=== PATIENT | female | born 1980 | race Caucasian/White ===

== ENCOUNTER 2023-12-05 10:49 | Emergency (ER) | payer OTHER ==
--- NOTE | 2023-12-05 11:34 | RAD REPORT ---
EXAMINATION: Abdomen Exam Limited CLINICAL HISTORY: [facility] MAIN abd pain er 19 COMPARISON: None. TECHNIQUE: Limited abdominal grayscale and color flow sonographic images. FINDINGS: Survey of the 4 abdominal quadrants reveals a mild volume of free ascites. The amount of free fluid i s not deemed safe for ultrasound-guided drainage. Mildly prominent small bowel loops throughout the abdomen containing fluid. IMPRESSION: Mild ascites. Volume is not sufficient for safe ultrasound-guided paracentesis.
--- NOTE | 2023-12-05 11:55 | ER ---
Nurse's Notes [facility] Name: Naomi Celis Age: 43 yrs Sex: Female : 1980 Arrival Date: 12/05/2023 Time: 10:49 Bed 19 Private MD: Diagnosis: Alcoholic cirrhosis of liver Presentation: 12/04 11:13 Coronavirus screen: At this time, the client does not indicate any symptoms associated iw with coronavirus-19. Ebola Screen: No symptoms or risks identified at this time. Initial Sepsis Screen: Does the patient meet any 2 criteria? No. Patient's initial sepsis screen is negative. Does the patient have a suspected source of infection? No. Patient's initial sepsis screen is negative. Risk Assessment: Do you want to hurt yourself or someone else? Patient reports no desire to harm self or others. 11:13 Acuity: ANAIS 3 iw 11:13 Method Of Arrival: Ambulatory iw 11:14 Chief complaint: Patient states: abd pain . distention, hx of cirrhosis, was released iw from hospital after paracentesis this past week. Onset of symptoms was December 05, 2023. 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 - Infectious Disease History:: Denies. - Social history:: Smoking status: Patient reports the use of cigarette tobacco products, smokes one-half pack cigarettes per day. Screenin:24 [facility] ED Fall Risk Assessment (Adult) History of falling in the last 3 months, mb9 including since admission No falls in past 3 months (0 pts) Confusion or Disorientation No (0 pts) Intoxicated or Sedated No (0 pts) Impaired Gait No (0 pts) Mobility Assist Device Used No (0 pt) Altered Elimination No (0 pt) Score/Fall Risk Level 0 - 2 = Low Risk Oriented to surroundings, Maintained a safe environment, Educated pt \T\ family on fall prevention, incl call for assistance when getting out of bed. Abuse screen: Denies threats or abuse. Nutritional screening: No deficits noted. Tuberculosis screening: No symptoms or risk factors identified. Assessment: 11:23 General: Appears in no apparent distress. Behavior is calm, cooperative. Pain: mb9 Complains of pain in abdomen Pain does not radiate. Quality of pain is described as pressure, throbbing, Is continuous. Neuro: [place]ano Agitation-Sedation Scale (RASS): 0 - Alert and Calm Level of Consciousness is awake, alert, obeys commands, Oriented to person, place, time, situation, Appropriate for age. Cardiovascular: Patient's skin is warm and dry. Respiratory: Airway is patent Respiratory effort is even, unlabored, Respiratory pattern is regular, symmetrical. GI: Abdomen is round distended, Bowel sounds present X 4 quads. Abd is soft Abdomen is tender to palpation X 4 quads. : No signs and/or symptoms were reported regarding the genitourinary system. EENT: No signs and/or symptoms were reported regarding the EENT system. Derm: Skin is pink, warm \T\ dry. Musculoskeletal: Range of motion: intact in all extremities. 12:21 Reassessment: No changes from previously documented assessment. Patient and/or family mb9 updated on plan of care and expected duration. Pain level reassessed. Patient is alert, oriented x 3, equal unlabored respirations, skin warm/dry/pink. Vital Signs: 11:14 BP 113 / 75; Pulse 102; Resp 18; Temp 97.7; Pulse Ox 100% on R/A; Weight 58.51 kg; iw Height 5 ft. 11 in. ; Pain 8/10; 12:21 BP 110 / 72; Pulse 90; Resp 16; Pulse Ox 100% on R/A; mb9 11:14 Body Mass Index 17.99 (58.51 kg, 180.34 cm) iw 11:14 Pain Scale: Adult iw ED Course: 10:51 Patient arrived in ED. ra3 10:53 Wing Clarke DO is Attending Physician. ms3 11:13 Triage completed. iw 11:23 Michelle Gurrola, MICHAEL is Primary Nurse. mb9 11:23 Arm band placed on. mb9 11:24 Bed in low position. Call light in reach. Side rails up X 1. Provided Education on: mb9 press call light if needing anything. Client placed on continuous cardiac and pulse oximetry monitoring. NIBP monitoring applied. 11:24 No provider procedures requiring assistance completed. mb9 11:25 Patient taken to ultrasound. via stretcher. mb9 11:31 Abdomen Exam Limited In Process Unspecified. EDMS 11:54 Edward Lloyd DO is Referral Physician. ms3 12:21 Patient did not have IV access during this emergency room visit. evi9 Administered Medications: No medications were administered Medication: 11:24 VIS not applicable for this client. mb9 Outcome: 11:55 Discharge ordered by MD. ms3 12:21 Discharged to home ambulatory, mb9 12:21 Condition: stable 12:21 Discharge instructions given to patient, Instructed on discharge instructions, follow up and referral plans. Demonstrated understanding of instructions, follow-up care, medications, Prescriptions given X 1, 12:21 Patient left the ED. mb9 Signatures: Dispatcher [employer] EDMS Binta Martin RN RN iw Sims, Marcus, DO DO ms3 Michelle Gurrola, RN RN mb9 Mouna Feliz 3
--- NOTE | 2023-12-05 11:55 | EDPHYS ---
Physician Documentation [facility] Name: Naomi Celis Age: 43 yrs Sex: Female : 1980 Arrival Date: 12/05/2023 Time: 10:49 Bed 19 Private MD: ED Physician Wing Clarke HPI: 12/04 11:55 This 43 yrs old Female presents to ER via Ambulatory with complaints of Abdominal Pain. ms3 11:55 43-year-old female past medical history of alcohol abuse presents to the emergency ms3 department for abdominal distention. Patient states she feels like she needs fluid drained. Patient denies fevers, chills, nausea, vomiting. 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 - Infectious Disease History:: Denies. - Social history:: Smoking status: Patient reports the use of cigarette tobacco products, smokes one-half pack cigarettes per day. ROS: 11:55 Constitutional: Negative for fever, and chills. Neck: Negative for injury, pain, and ms3 swelling, Cardiovascular: Negative for chest pain, and palpitations. Respiratory: Negative for shortness of breath, cough, wheezing, and pleuritic chest pain, 11:55 Abdomen/GI: Positive for Distention, Exam: 11:55 Constitutional: This is a well developed, well nourished patient who is awake, alert, ms3 and in no acute distress. Head/Face: Normocephalic, atraumatic. Chest/axilla: Normal chest wall appearance and motion. Nontender with no deformity. Cardiovascular: Regular rate and rhythm with a normal S1 and S2. No gallops, murmurs, or rubs. Normal PMI, no JVD. No pulse deficits. Respiratory: Lungs have equal breath sounds bilaterally, clear to auscultation and percussion. No rales, rhonchi or wheezes noted. No increased work of breathing, no retractions or nasal flaring. 11:55 Abdomen/GI: Inspection: abdomen appears normal, distension, that is moderate, Bowel sounds: normal, Palpation: mild abdominal tenderness, in all quadrants, Vital Signs: 11:14 BP 113 / 75; Pulse 102; Resp 18; Temp 97.7; Pulse Ox 100% on R/A; Weight 58.51 kg; iw Height 5 ft. 11 in. ; Pain 8/10; 12:21 BP 110 / 72; Pulse 90; Resp 16; Pulse Ox 100% on R/A; mb9 11:14 Body Mass Index 17.99 (58.51 kg, 180.34 cm) iw 11:14 Pain Scale: Adult iw MDM: 11:14 Patient medically screened. ms3 11:55 Differential diagnosis: Ascites versus alcoholic liver cirrhosis versus liver tumor. ms3 Data reviewed: vital signs, nurses notes, radiologic studies, and as a result, I will discharge patient. Counseling: I had a detailed discussion with the patient and/or guardian regarding the historical points, exam findings, and any diagnostic results supporting the discharge/admit diagnosis, radiology results, the need for outpatient follow up, to return to the emergency department if symptoms worsen or persist or if there are any questions or concerns that arise at home. Special discussion: I discussed with the patient/guardian in detail that at this point there is no indication for admission to the hospital. It is understood, however, that if the symptoms persist or worsen the patient needs to return immediately for re-evaluation. ED course: Discussed obtaining labs and CT with patient after ultrasound reveals minimal ascitic fluid. Patient declines labs and imaging at this time. Patient to follow-up with Dr. Zhao, hepatology, at [facility]. Patient and her understand and agree with plan. All questions were answered. Return precautions discussed include worsening symptoms, or any other concerns. 12/04 11:31 Order name: Abdomen Exam Limited; Complete Time: 11:40 EDMS Administered Medications: No medications were administered Disposition Summary: 12/05/23 11:55 Discharge Ordered Notes: Location: Home ms3 Condition: Stable ms3 Diagnosis - Alcoholic cirrhosis of liver ms3 Followup: ms3 - With: Edward Lloyd, DO - When: 2 - 3 days - Reason: Recheck today's complaints Discharge Instructions: - Discharge Summary Sheet ms3 - Alcoholic Liver Disease, [id number] ms3 Forms: - Medication Reconciliation Form ms3 - Antibiotic Education ms3 - Prescription Opioid Use ms3 - Patient Portal Instructions ms3 - Leadership Thank You Letter ms3 Prescriptions: - Lactulose 10 gram/15 mL Oral solution - take 30 milliliters ORAL route every 8 hours; 2400 milliliter; Refills: 0, ms3 Product Selection Permitted Signatures: Dispatcher [employer] Binta Olivares RN RN Wing Dumont DO DO ms3 Corrections: (The following items were deleted from the chart) 11:31 11:19 Paracentesis Proc Guidance ordered. RICKIE DAMIAN
[2023-12-05 12:47] VITALS: TEMP 97.7; O2SAT 100
[2023-12-05 12:48] VITALS: BP 110/72
== END 2023-12-05 12:21 | disposition home or self-care (01) ==
LOC: ER 10:49
DX: K70.30 Alcoholic cirrhosis of liver without ascites (principal); F17.210 Nicotine dependence, cigarettes, uncomplicated
CPT/HCPCS: 76705; 99284

== ENCOUNTER 2024-01-29 03:21 | Emergency (ER) | payer OTHER ==
[2024-01-29] MEDS ORDERED: PANTOPRAZOLE 40 MG INJ ONE (04:04)
[2024-01-29] MEDS ORDERED: CEFTRIAXONE 2000 MG/VIAL ONE (04:04)
[2024-01-29] MEDS ORDERED: ONDANSETRON 4 MG/2 ML VIAL ONE (04:04)
[2024-01-29] MEDS ORDERED: MORPHINE 4 MG/ML SYR ONE (04:05)
[2024-01-29] MEDS ORDERED: OCTREOTIDE ACETATE 100 MCG/ML ONE (04:05)
[2024-01-29] MEDS ORDERED: NA CHLORIDE 0.9% 1,000 ML ONE (04:05)
[2024-01-29 04:33] LABS: PT Prothrombin Time 19.5 SECONDS (9.4-12.5); Protime INR 1.77
[2024-01-29 04:59] LABS: Absolute Basophils 0.1 K/uL (0-0.5); Absolute Eosinophils 0.1 K/uL (0-0.5); Absolute Lymphocytes (CBC) 3.4 K/uL (0.7-4.9); Absolute Neutrophil 10.6 K/uL (1.8-8.0); Basophils % 0.8 % (0-1.3); Eosinophils % 0.7 % (0-4.4); Hematocrit 22.6 % (36.0-45.0); Lymphocytes % 20.9 % (15.3-44.8); MCH 31.8 pg (27.0-35.0); MCHC 30.9 g/dL (32.0-36.0); MCV 102.7 fL (80-100); MPV 8.5 fL (7.6-11.3); Monocytes % 12.4 % (3.3-12.3); Neutrophils % 65.2 % (41.7-73.7); Platelets 211 thou/uL (152-406); Red Cell Distribution Width 19.6 % (12.1-15.2)
[2024-01-29 05:01] LABS: Albumin 2.9 g/dL (3.4-5.0); Anion Gap 11.1 mEq/L (5.0-15.0); Bilirubin Total 2.9 mg/dL (0.2-1.0); Protein, Total 5.9 g/dL (6.4-8.2)
[2024-01-29 05:08] LABS: Potassium 4.1 mEq/L (3.5-5.1)
--- NOTE | 2024-01-29 06:35 | RAD REPORT ---
EXAM DESCRIPTION: Abdomen Pelvis W Contrast CLINICAL HISTORY: ABD PAIN COMPARISON: 11/20/2023 TECHNIQUE: CT of the abdomen and pelvis performed following IV administration of iodinated contrast . This exam was performed according to our departmental dose-optimization program, which includes automated exposure control, adjustment of the mA and/or kV according to patient size and/or use of it erative reconstruction technique. FINDINGS: Lung Bases: Mild bibasilar dependent atelectasis. Small left pleural effusion. Bones: No acute osseous abnormality identified. Abdomen: Liver: Nodular contour of the liver. Hepatomegaly. Gallbladder: Distention of the gallbladder without calcified gallstone. Spleen, Pancreas, and Adrenal Glands: Splenomegaly. The pancreas is mildly atrophic. Adrenal glands are unremarkable. Kidneys: No hydronephrosis or obstructing calculus. Obstructing bilateral nephrolithiasis. Bilate ral renal cysts. No follow-up imaging for the structures. Vasculature: Aortoiliac atherosclerosis. IVC is unremarkable. The portal vein is patent. The proxim al visceral and renal arteries are patent. Stomach: The stomach and duodenum have normal course. Other: No free intraperitoneal air. Large volume ascites. Body wall anasarca. Pelvis: Bladder: Urinary bladder is unremarkable. Bowel: No dilated loops of large or small bowel. Mild wall thickening of the small bowel. Appendix: Normal appendix. Pelvis: Uterus is not enlarged. Postoperative change of the fallopian tubes. IMPRESSION: 1. Large volume ascites. 2. Hepatomegaly with nodular contour of the liver. Findings compatible with cirrhosis. 3. Splenomegaly. 4. Mild wall thickening of the small bowel. This could be seen with nonspecific enteritis, portal e nteropathy, or hypoproteinemia. 5. Small left pleural effusion. 6. Nonobstructing bilateral nephrolithiasis. Electronically signed by: Prasanna Dugan DO 01/29/2024 06:30 AM [facility] 4ZDM Due to temporary technical issues with the PACS/Brightfish reporting system, reports are being bennett d by the in-house radiologist without review as a courtesy to ensure prompt reporting the interpreting radiologist is fully responsible for the content of the report. Transcribed Date/Time: 01/29/2024 6:35 AM
--- NOTE | 2024-01-29 06:46 | ER ---
Nurse's Notes [facility] Name: Naomi Celis Age: 43 yrs Sex: Female : 1980 Arrival Date: 01/29/2024 Time: 03:21 Bed 15 Private MD: Diagnosis: Hematemesis;Acute blood loss anemia;Cirrhosis Presentation: 01/28 03:39 Chief complaint: Patient states: SEVERE STOMACH PAIN AND DISTENTION AND VOMITED BLOOD. vc1 Coronavirus screen: Client denies travel out of the [place] in the last 14 days. At this time, the client does not indicate any symptoms associated with coronavirus-19. Ebola Screen: Patient negative for fever greater than or equal to 101.5 degrees Fahrenheit, and additional compatible Ebola Virus Disease symptoms Patient denies exposure to infectious person. Patient denies travel to an Ebola-affected area in the 21 days before illness onset. No symptoms or risks identified at this time. Initial Sepsis Screen: Does the patient meet any 2 criteria? No. Patient's initial sepsis screen is negative. Does the patient have a suspected source of infection? No. Patient's initial sepsis screen is negative. Risk Assessment: Do you want to hurt yourself or someone else? Patient reports no desire to harm self or others. Note DISCHARGED FROM [facility] TUESDAY AFTER A 10 DAY ADMISSION. Onset of symptoms was January 29, 2024. Care prior to arrival: PARACENTESIS Tuesday01/25/24 7.5 L REMOVED. Activity prior to arrival: vomiting. Mechanism of Injury: No Mechanism of Injury. Transition of care: patient was not received from another setting of care. 03:39 Method Of Arrival: Ambulatory vc1 03:39 Acuity: ANAIS 3 vc1 Triage Assessment: 03:47 General: Appears in no apparent distress. uncomfortable, ill, Behavior is cooperative, vc1 appropriate for age. Pain: Complains of pain in abdomen Pain radiates to low back area Pain currently is 8 out of 10 on a pain scale. Quality of pain is described as pressure, Pain began suddenly, Is continuous. EENT: No deficits noted. No signs and/or symptoms were reported regarding the EENT system. Neuro: Level of Consciousness is awake, obeys commands, lethargic, Oriented to person, place, time, situation, Appropriate for age Moves all extremities. Weakness. Cardiovascular: Capillary refill < 3 seconds. Respiratory: Airway is patent Respiratory effort is even, unlabored, Respiratory pattern is regular, symmetrical. GI: Abdomen is distended, noted to have ascites, Reports lower abdominal pain, upper abdominal pain, bloating, Pain is 7 out of 10 on a pain scale. vomiting, VOMITING BLOOD. : No deficits noted. No signs and/or symptoms were reported regarding the genitourinary system. Derm: Skin is intact, is healthy with good turgor, Skin is dry, Skin is jaundiced, Skin temperature is warm. Musculoskeletal: Swelling present in right leg and left leg. Historical: - Allergies: 03:43 PENICILLINS; vc1 - Home Meds: 03:43 None [Active]; vc1 - PMHx: 03:43 alcohol abuse; Cirrhosis of liver; vc1 - PSHx: 03:43 PARACENTESIS; vc1 - Immunization history:: Client reports having NOT received the Covid vaccine. Flu vaccine is not up to date. - Infectious Disease History:: Denies. - Social history:: Smoking status: Patient reports the use of cigarette tobacco products, denies chronic smoking, but will smoke occasionally, Patient uses alcohol, NO ETOH IN 16 WEEKS. - Family history:: not pertinent. Screenin:45 [facility] ED Fall Risk Assessment (Adult) History of falling in the last 3 months, vc1 including since admission No falls in past 3 months (0 pts) Confusion or Disorientation No (0 pts) Intoxicated or Sedated No (0 pts) Impaired Gait Yes (1 pt) Mobility Assist Device Used No (0 pt) Altered Elimination No (0 pt) Score/Fall Risk Level 0 - 2 = Low Risk Oriented to surroundings, Maintained a safe environment, Educated pt \T\ family on fall prevention, incl call for assistance when getting out of bed. Abuse screen: Denies threats or abuse. Nutritional screening: No deficits noted. Tuberculosis screening: No symptoms or risk factors identified. Assessment: 04:46 Reassessment: SEE TRIAGE ASSESSMENT FOR FULL ASSESSMENT. dd2 05:48 Reassessment: Patient and/or family updated on plan of care and expected duration. Pain rg5 level reassessed. Patient is alert, oriented x 3, equal unlabored respirations, skin warm/dry/pink. Patient states symptoms have improved. 06:43 Reassessment: No changes from previously documented assessment. Patient and/or family rg5 updated on plan of care and expected duration. Pain level reassessed. Patient is alert, oriented x 3, equal unlabored respirations, skin warm/dry/pink. 08:30 Reassessment: Patient appears in no apparent distress at this time. Patient and/or ph family updated on plan of care and expected duration. Pain level reassessed. Patient is alert, oriented x 3, equal unlabored respirations, skin warm/dry/pink. 09:25 Reassessment: Report given to MICHAEL Hinojosa at [facility]. ph 10:25 Reassessment: Patient appears in no apparent distress at this time. Patient and/or ph family updated on plan of care and expected duration. Pain level reassessed. Patient is alert, oriented x 3, equal unlabored respirations, skin warm/dry/pink. [facility] at bedside, report given and PRBCs checked off w/ Hughes, EMT-P, pt transferred to [facility] w/ PRBCs infusing, VSS. Vital Signs: 03:39 BP 118 / 76; Pulse 111; Resp 18; Temp 98.2; Pulse Ox 97% ; Weight 68.04 kg (M); Height vc1 5 ft. 2 in. ; Pain 8/10; 04:42 BP 119 / 76; Pulse 97; Resp 15; Pulse Ox 100% on 2 lpm NC; dd2 05:46 BP 116 / 73; Pulse 96; Resp 18; Pulse Ox 100% on 3 lpm NC; Pain 0/10; rg5 06:41 Pulse 93; Resp 19; Pulse Ox 100% on 3 lpm NC; rg5 08:30 BP 101 / 51; Pulse 88; Resp 18; Pulse Ox 100% on 3 lpm NC; ph 09:30 BP 106 / 59; Pulse 93; Resp 18; Temp 97.5; Pulse Ox 99% on R/A; ph 10:00 BP 104 / 64; Pulse 91; Resp 16; Temp 97; Pulse Ox 99% on R/A; ph 10:25 BP 105 / 64; Pulse 95; Resp 16; Temp 97; Pulse Ox 99% on R/A; ph 03:39 Body Mass Index 27.44 (68.04 kg, 157.48 cm) vc1 03:39 Pain Scale: Adult vc1 05:46 Pain Scale: Adult rg5 [place] Coma Score: 04:42 Eye Response: spontaneous(4). Motor Response: obeys commands(6). Verbal Response: dd2 oriented(5). Total: 15. ED Course: 03:25 Patient arrived in ED. gm2 03:29 William Otoole MD is Attending Physician. rt 03:43 Triage completed. vc1 03:45 Arm band placed on right wrist. vc1 03:46 Patient has correct armband on for positive identification. Bed in low position. Call vc1 light in reach. Pulse ox on. NIBP on. 03:53 CHARITY LIZ, RN is Primary Nurse. dd2 04:42 Door closed. Noise minimized. Lights dimmed. Warm blanket given. Pillow given. Verbal dd2 reassurance given. 04:42 Provided Education on: CALL LIGHT, MEDICATIONS. dd2 04:42 No provider procedures requiring assistance completed. Initial lab(s) drawn, by me, dd2 sent to lab. Inserted saline lock: 20 gauge in right forearm, using aseptic technique. Blood collected. Flushed with 10 mL NS Missed attempt(s): 22 gauge in right upper arm. Bleeding controlled, band aid applied, catheter tip intact. Oxygen administration via nasal cannula \T\ 2L/min. 05:48 Inserted saline lock: 20 gauge forearm, using aseptic technique. Blood collected. rg5 Flushed with 10 mL NS. 06:11 CT Abd/Pelvis - IV Contrast Only In Process Unspecified. EDMS 07:20 Attending Physician role handed off by William Otoole MD ec2 07:20 Domo Watson MD is Attending Physician. ec2 07:20 initiated a transfer with [facility] from the [facility] [place]. eb 08:18 connected the hospitalist florist supplies salesperson for [facility] with Dr. Watson for patient eb transfer consultation. 08:21 administrative approval given by [facility] [place]/ patient has been accepted to [facility] 9 tower 962/ Dr. Cobian has accepted the patient in transfer/ report to be called to [phone]. 08:30 Antibody Screen Sent. ph 08:30 ABO/RH typing Sent. ph 08:31 Repeat lab(s) drawn. by me, sent to lab. T\T\S collected, blood band applied to patient. ph 08:31 Patient transferred, IV remains in place. ph 09:02 Primary Nurse role handed off by CHARITY LIZ RN eb 09:21 Lauren Hyatt RN is Primary Nurse. ph 09:30 Consent for blood and/or blood product transfusion explained by staff, explained by ph physician, signed by patient. 10:45 Packed Rbc Leukored Sent. ph Administered Medications: 04:32 Drug: Ondansetron IVP 4 mg IVP once; over 2 minutes Route: IVP; Site: right forearm; dd2 04:55 Follow up: Response: No adverse reaction rg5 04:32 Drug: morphine IVP or IV 4 mg IVP once over 4 mins Route: IVP; Infused Over: 4 mins; dd2 Site: right forearm; 04:55 Follow up: Response: No adverse reaction; Pain is decreased rg5 04:32 Drug: NS 0.9% IV 1000 ml IV at 1 bolus Per protocol; to be given as a bolus over 60 dd2 minutes Route: IV; Rate: 1 bolus; Site: right forearm; 04:32 Drug: Rocephin IV 2 grams IV at calculated rate once; Given slow IV push per Jumia dd2 instructions Route: IV; Rate: calculated rate; Site: right forearm; 04:32 Drug: Octreotide IV 50 mcg IV at calculated rate once Route: IV; Rate: calculated rate; dd2 Site: right forearm; 04:33 Drug: Pantoprazole IVP 80 mg IVP once Route: IVP; Site: right forearm; dd2 04:55 Follow up: Response: No adverse reaction rg5 Medication: 03:47 VIS not applicable for this client. vc1 10:10 Blood products: PRBCs X 1 unit given. ph Outcome: 06:45 ER care complete, transfer ordered by . rt 10:45 Transferred by ground EMS [facility]. to [facility], [facility], Transfer ph form completed. X-rays sent w/ patient. 10:45 Condition: stable 10:45 Instructed on the need for transfer, 10:47 Patient left the ED. ph Signatures: Dispatcher [employer] EDLauren Alfred RN RN ph [facility] Rosa Vanessa, RN RN vc1 William Otoole MD MD rt Domo Watson MD MD ec2 Mechelle Celis gm2 Bonifacio Wade RN RN rg5 CHARITY LIZ RN RN dd2 Corrections: (The following items were deleted from the chart) 03:46 03:39 Care prior to arrival: PARACENTESIS Tuesday01/25/24 vc1 vc1 09:26 09:25 Reassessment: Report given to MICHAEL Hinojosa at [facility] ph ph
--- NOTE | 2024-01-29 06:46 | EDPHYS ---
Physician Documentation [facility] Name: Naomi Celis Age: 43 yrs Sex: Female : 1980 Arrival Date: 01/29/2024 Time: 03:21 Bed 15 Private MD: ED Physician Domo Watson HPI: 01/28 05:30 This 43 yrs old Female presents to ER via Ambulatory with complaints of Abdominal Pain. rt 05:30 Patient has a history of alcoholic cirrhosis, reportedly was at [facility] for GI rt bleed, had a banding procedure per her report. States that she had worsening abdominal swelling, abdominal pain and vomiting blood starting tonight. Denies other acute complaints at this time, symptoms are moderate in severity, no other aggravating or alleviating factors.. Historical: - Allergies: 03:43 PENICILLINS; vc1 - Home Meds: 03:43 None [Active]; vc1 - PMHx: 03:43 alcohol abuse; Cirrhosis of liver; vc1 - PSHx: 03:43 PARACENTESIS; vc1 - Immunization history:: Client reports having NOT received the Covid vaccine. Flu vaccine is not up to date. - Infectious Disease History:: Denies. - Social history:: Smoking status: Patient reports the use of cigarette tobacco products, denies chronic smoking, but will smoke occasionally, Patient uses alcohol, NO ETOH IN 16 WEEKS. - Family history:: not pertinent. ROS: 05:30 Constitutional: Negative for fever, chills, and weight loss, Cardiovascular: Negative rt for chest pain, palpitations, and edema, Respiratory: Negative for shortness of breath, cough, wheezing, and pleuritic chest pain, MS/Extremity: Negative for injury and deformity, Skin: Negative for injury, rash, and discoloration, Neuro: Negative for headache, weakness, numbness, tingling, and seizure, 05:30 Abdomen/GI: Positive for abdominal pain, nausea and vomiting, hematemesis, Exam: 05:30 Constitutional: This is a well developed, well nourished patient who is awake, alert, rt and in no acute distress. Head/Face: Normocephalic, atraumatic. Chest/axilla: Normal chest wall appearance and motion. Nontender with no deformity. No lesions are appreciated. Cardiovascular: Regular rate and rhythm with a normal S1 and S2. No gallops, murmurs, or rubs. Normal PMI, no JVD. No pulse deficits. Respiratory: Lungs have equal breath sounds bilaterally, clear to auscultation and percussion. No rales, rhonchi or wheezes noted. No increased work of breathing, no retractions or nasal flaring. Skin: Warm, dry with normal turgor. Normal color with no rashes, no lesions, and no evidence of cellulitis. MS/ Extremity: Pulses equal, no cyanosis. Neurovascular intact. Full, normal range of motion. 05:30 Abdomen/GI: Ascitic abdomen, tender diffusely without rebound, guarding,, 05:46 ECG was reviewed by the Attending Physician. rt Vital Signs: 03:39 BP 118 / 76; Pulse 111; Resp 18; Temp 98.2; Pulse Ox 97% ; Weight 68.04 kg (M); Height vc1 5 ft. 2 in. ; Pain 8/10; 04:42 BP 119 / 76; Pulse 97; Resp 15; Pulse Ox 100% on 2 lpm NC; dd2 05:46 BP 116 / 73; Pulse 96; Resp 18; Pulse Ox 100% on 3 lpm NC; Pain 0/10; rg5 06:41 Pulse 93; Resp 19; Pulse Ox 100% on 3 lpm NC; rg5 08:30 BP 101 / 51; Pulse 88; Resp 18; Pulse Ox 100% on 3 lpm NC; ph 09:30 BP 106 / 59; Pulse 93; Resp 18; Temp 97.5; Pulse Ox 99% on R/A; ph 10:00 BP 104 / 64; Pulse 91; Resp 16; Temp 97; Pulse Ox 99% on R/A; ph 10:25 BP 105 / 64; Pulse 95; Resp 16; Temp 97; Pulse Ox 99% on R/A; ph 03:39 Body Mass Index 27.44 (68.04 kg, 157.48 cm) vc1 03:39 Pain Scale: Adult vc1 05:46 Pain Scale: Adult rg5 [place] Coma Score: 04:42 Eye Response: spontaneous(4). Motor Response: obeys commands(6). Verbal Response: dd2 oriented(5). Total: 15. MDM: 03:39 Medical Screening Exam initiated rt 07:01 Differential Diagnosis Cirrhosis, variceal bleed, blood loss anemia. Data reviewed: rt vital signs, nurses notes, lab test result(s), EKG, radiologic studies. Consideration of Admission/Observation Patient requires transfer for higher level of care. I considered the following discharge prescriptions or medication management in the emergency department Medications were administered in the Emergency Department. See MAR. Independent interpretation of the following test(s) in the Emergency Department CT Scan: My interpretation is No bowel obstruction syndrome interpretation of CT scan images. Care significantly affected by the following chronic conditions: CLD. Counseling: I had a detailed discussion with the patient and/or guardian regarding the historical points, exam findings, and any diagnostic results supporting the discharge/admit diagnosis, lab results, radiology results, the need to transfer to another facility. Response to treatment: the patient's symptoms have markedly improved after treatment, Pain and nausea significantly improving. ED course: Patient's initial presentation was not thought to be due to infectious etiology. Rocephin was given due to mortality benefits in patients with variceal bleeds. Patient is known to be tachycardic, likely due to blood loss. She does have a leukocytosis but no clear source of infection. Nonetheless, blood cultures were drawn, however, it was performed after the antibiotics were given for the reasons above. Suspect leukocytosis is due to demargination. 07:21 ED course: Patient signed out to me reporting transfer, brief arrives today with ec2 history of cirrhosis secondary to alcohol abuse with complaints of hematemesis. Plan is to transfer patient. Patient has been given ceftriaxone, Protonix push and drip and octreotide.. 01/28 08:02 Order name: ABO/RH typing [facility] 01/28 08:02 Order name: Antibody Screen EDMN 01/28 03:47 Order name: CBC with Diff; Complete Time: 05:09 rt 01/28 03:47 Order name: CMP; Complete Time: 05:09 rt 01/28 03:47 Order name: Lipase; Complete Time: 05:09 rt 01/28 03:47 Order name: PT-INR; Complete Time: 05:09 rt 01/28 03:47 Order name: Lactate w/ 2H reflex if indic.; Complete Time: 05:09 rt 01/28 05:10 Order name: Blood Culture Adult (2) rt 01/28 05:10 Order name: Ptt, Activated; Complete Time: 05:34 rt 01/28 07:08 Order name: Ghost Lactate-NO COLLECT Timer; Complete Time: 07:22 EDMS 01/28 08:00 Order name: Packed Rbc Leukored ec2 01/28 08:52 Order name: Lactate Sepsis 2 HR Follow-up EDMS 01/28 09:02 Order name: ABO/RH no charge EDMS 01/28 03:47 Order name: CT Abd/Pelvis - IV Contrast Only; Complete Time: 07:22 rt 01/28 03:47 Order name: IV Saline Lock; Complete Time: 04:07 rt 01/28 03:47 Order name: Labs collected and sent; Complete Time: 04:07 rt 01/28 05:10 Order name: Accucheck; Complete Time: 05:45 rt 01/28 05:10 Order name: Cardiac monitoring; Complete Time: 05:45 rt 01/28 05:10 Order name: EKG - Nurse/Tech; Complete Time: 05:45 rt 01/28 05:10 Order name: IV Saline Lock - Large Bore; Complete Time: 05:45 rt 01/28 05:10 Order name: O2 Per Protocol; Complete Time: 05:45 rt 01/28 05:10 Order name: O2 Sat Monitoring; Complete Time: 05:45 rt 01/28 05:10 Order name: Vital Signs; Complete Time: 05:44 rt 01/28 08:00 Order name: Consent for Blood Transfusion; Complete Time: 10:45 ec2 EC:46 Rate is 94 beats/min. Rhythm is regular, Normal Sinus Rhythm with No ectopy. QRS [place] rt is Normal. MA interval is normal. QRS interval is normal. QT interval is normal. No Q waves. No ST changes noted. Interpreted by me. Administered Medications: 04:32 Drug: Ondansetron IVP 4 mg IVP once; over 2 minutes Route: IVP; Site: right forearm; dd2 04:55 Follow up: Response: No adverse reaction rg5 04:32 Drug: morphine IVP or IV 4 mg IVP once over 4 mins Route: IVP; Infused Over: 4 mins; dd2 Site: right forearm; 04:55 Follow up: Response: No adverse reaction; Pain is decreased rg5 04:32 Drug: NS 0.9% IV 1000 ml IV at 1 bolus Per protocol; to be given as a bolus over 60 dd2 minutes Route: IV; Rate: 1 bolus; Site: right forearm; 04:32 Drug: Rocephin IV 2 grams IV at calculated rate once; Given slow IV push per pharmarcy dd2 instructions Route: IV; Rate: calculated rate; Site: right forearm; 04:32 Drug: Octreotide IV 50 mcg IV at calculated rate once Route: IV; Rate: calculated rate; dd2 Site: right forearm; 04:33 Drug: Pantoprazole IVP 80 mg IVP once Route: IVP; Site: right forearm; dd2 04:55 Follow up: Response: No adverse reaction rg5 Disposition Summary: 01/29/24 06:45 Transfer Ordered Notes: Transfer Location: [facility] rt Reason: Higher level of care rt Condition: Serious rt Problem: new rt Symptoms: have improved rt Accepting Physician: (01/29/24 10:47) ph Diagnosis - Hematemesis rt - Acute blood loss anemia rt - Cirrhosis rt Forms: - Medication Reconciliation Form rt - SBAR form rt Critical care time excluding procedures: 07:01 Critical care time: Bedside Care: 30 minutes. Total time: 30 minutes rt Signatures: Dispatcher [employer] EDMS Lauren Hyatt RN RN ph Alba Shoemaker RN RN vc1 William Otoole MD MD rt Domo Watson MD MD ec2 CHARITY LIZ RN RN dd2 Bonifacio Wade RN rg5 Corrections: (The following items were deleted from the chart) 05:10 05:10 BLOOD CULTURE*+BA.LAB.BRZ ordered. EDMS EDMS 05:10 05:10 PTT, ACTIVATED+COAG.LAB.BRZ ordered. EDMS EDMS 08:35 06:42 TYPE AND SCREEN+BB.LAB.BRZ ordered. EDMS EDMS 10:47 06:45 DrRicky rt ph
[2024-01-29] MEDS ORDERED: NA CHLORIDE 0.9% 250 ML ONE (09:29)
[2024-01-29 11:21] VITALS: O2SAT 99
[2024-01-29 11:22] VITALS: TEMP 97
[2024-01-29 11:23] VITALS: BP 105/64
--- NOTE | 2024-01-30 11:59 | EKG ---
Test Date: 2024-01-29 Test Time: 05:41:33 Medical Consultant: JAMIA MEASUREMENT RESULTS: Intervals: Rate: 94 MS: 142 QRSD: 74 QT: 344 QTc: 430 [place]: P: 49 MS: 142 QRS: 79 T: -6 INTERPRETIVE STATEMENTS: Normal sinus rhythm Nonspecific T wave abnormality Abnormal ECG Compared to ECG 11/22/2023 13:26:21 T-wave abnormality now present Sinus tachycardia no longer present Electronically Signed On 01-30-24 11:59:01 PATIENT SERVICE ASSOCIATE by Nirav Zafar
== END 2024-01-29 10:47 | disposition short-term general hospital (02) ==
LOC: ER 03:21
DX: D62 Acute posthemorrhagic anemia (principal); K74.60 Unspecified cirrhosis of liver; F17.210 Nicotine dependence, cigarettes, uncomplicated
CPT/HCPCS: 93005; 87040 ×2; 85025; 36415; 86900; 86850; 85610; 86901; 83605 ×2; 85730; 86920; 83690; 80053; 74177; 36430; 96375; 96374; 99285; Q9967; J2354; J2470; J2405; J0696; P9016; J7050; J7030